=== PATIENT | female | born 1995 | race Caucasian/White ===

== ENCOUNTER 2020-01-08 07:12 | Day surgery (SDC) | payer OTHER ==
[2020-01-03 15:24] VITALS: BMI 30.9
[~2020-01-08 07:12] MED LIST: ACETAMINOPHEN TAB 500 MG TAB PO ONE; CLINDAMYCIN 900 MG in DEXTROSE 5% IN WATER 50 ML IVPB ONE; GENTAMICIN 320 MG in SODIUM CHLORIDE 0.9% 100 ML IVPB ONE; HEPARIN SODIUM,PORCINE 5,000 UNIT/ML 1 ML VIAL SQ ONE
[2020-01-08 07:42] VITALS: RESP 16
[2020-01-08] MEDS ORDERED: LACTATED RINGERS 1,000 ML IV ONE (07:58)
[2020-01-08] MEDS ORDERED: LIDOCAINE 1% (10MG/ML) FOR IV START INTRADERMA ONE (07:59)
[2020-01-08] MEDS ORDERED: ONDANSETRON 4 MG/2 ML VIAL ONE (08:01)
[2020-01-08] MEDS ORDERED: DEXAMETHASONE SOD PHOSPHATE 4 MG/ML 1 ML VIAL IV ONE (08:18)
[2020-01-08] MEDS ORDERED: MIDAZOLAM 2 MG/2 ML VIAL IV ONE (08:18)
[2020-01-08] MEDS ORDERED: SCOPOLAMINE 1.5MG/72HR PATCH TRANSDERM ONE (08:20)
--- NOTE | 2020-01-08 08:39 | P.GSHP ---
History of Present Illness H&P Date: 01/08/20 Chief Complaint: Right upper quadrant pain This a 21-year-old female who's had complaints of right upper quadrant pain. She presents today for laparoscopic cholestatic. She's had complaints of pain when eating greasy and fried foods. Past Medical History Additional Past Medical History / Comment(s): cholelithiasis History of Any Multi-Drug Resistant Organisms: None Reported Past Surgical History: Orthopedic Surgery Additional Past Surgical History / Comment(s): rt knee scope Past Anesthesia/Blood Transfusion Reactions: No Reported Reaction Smoking Status: Never smoker - Past Family History Mother Family Medical History: No Reported History Medications and Allergies Home Medications Medication Instructions Recorded Confirmed Type Ethinyl Estradiol/Drospirenone 1 tab PO DAILY 01/03/20 01/08/20 History [Melissa 28 Tablet] Allergies Allergy/AdvReac Type Severity Reaction Status Date / Time amoxicillin Allergy Rash/Hives Verified 01/08/20 07:30 cefprozil [From Cefzil] Allergy tongue Verified 01/08/20 07:30 Swelling Penicillins Allergy Rash/Hives Verified 01/08/20 07:30 Surgical - Exam Vital Signs Temp Pulse Resp BP Pulse Ox 98.4 F 97 16 133/86 99 01/08/20 07:40 01/08/20 07:40 01/08/20 07:40 01/08/20 07:40 01/08/20 07:40 - General well developed, well nourished, no distress - Eyes PERRL - ENT normal pinna - Neck no masses - Respiratory normal expansion - Cardiovascular Rhythm: regular - Abdomen Abdomen: soft, non tender Assessment and Plan Assessment: There are dysfunction. We'll perform laparoscopic cholecystectomy.
[2020-01-08] MEDS ORDERED: KETOROLAC 15 MG/ML 1 ML VIAL ONE (08:41)
[2020-01-08] MEDS ORDERED: GLYCOPYRROLATE 0.2 MG/ML 2 ML VIAL ONE (08:41)
[2020-01-08] MEDS ORDERED: MIDAZOLAM 2 MG/2 ML VIAL ONE (08:41)
[2020-01-08] MEDS ORDERED: ROCURONIUM 10 MG/ML (10 ML VIAL) IV ONE (08:41)
[2020-01-08] MEDS ORDERED: SUCCINYLCHOLINE CHLORIDE 100 MG/5 ML SYR IV ONE (08:41)
[2020-01-08] MEDS ORDERED: fentaNYL (PF) 50 MCG/ML 2 ML AMP ONE (08:41)
[2020-01-08] MEDS ORDERED: NEOSTIGMINE 1 MG/ML 10 ML VIAL ONE (08:41)
[2020-01-08] MEDS ORDERED: LIDOCAINE 1% INJ 10MG/ML (20 ML MDV) ONE (08:41)
[2020-01-08] MEDS ORDERED: PROPOFOL 10 MG/ML 20 ML VIAL IV ONE (08:41)
[2020-01-08] MEDS ORDERED: BUPIVACAINE (PF) 0.25% 30 ML VIAL SQ ONE ×2 (09:07→09:20)
--- NOTE | 2020-01-08 09:28 | P.OP ---
Date of Procedure: 01/08/20 Preoperative Diagnosis: Cholecystitis Postoperative Diagnosis: Cholecystitis Procedure(s) Performed: Laparoscopic cholecystectomy Anesthesia: LOREN Surgeon: Scott Lynn Estimated Blood Loss (ml): 5 Pathology: other (Gallbladder) Condition: stable Disposition: PACU Description of Procedure: The patient was placed on the operating table. The patient received a general endotracheal tube anesthesia. The patients abdomen was prepped and draped in the usual sterile fashion. Through an infraumbilical stab incision, the fascia of the anterior abdominal wall was grasped with a pair of Kochers and then the Veress needle was placed in the peritoneal cavity. Position of the Veress needle was confirmed with positive drop test. The abdomen was then insufflated. After adequate insufflation, the 10 mm trocar was placed in the peritoneal cavity. Following this the laparoscope was placed in the peritoneal cavity. The patient was placed in the head-up, right side up position and then a 5 mm trocar was placed in the right lateral and right subcostal position under direct visualization. A 8 mm trocar was placed in the epigastric position. The gallbladder was grasped in the fundus and infundibulum. Traction on the gallbladder was placed in the lateral and the cephalad positions. The triangle of Calot was visualized.. The cystic duct was bluntly dissected until the union of the cystic duct and common bile duct was seen. A critical view of safety was achieved. The cystic duct was then divided and sealed with the Harmonic scissors. A PDS Endoloop was then placed throughout the cystic duct stump. The cystic artery divided and sealed with the Harmonic scissors. The gallbladder was then removed from the liver bed using Harmonic scissors. The gallbladder was then extracted through the epigastric port site. Operative field was checked for any bleeding spots and Harmonic scissors was used to coagulate the liver bed. The abdomen was irrigated. The trocars were removed. The skin was closed using interrupted 3-0 Vicryl suture. Dermabond dressing were applied. The patient tolerated the procedure well.
[2020-01-08 09:41] VITALS: TEMP 97.4
[2020-01-08] MEDS: HYDROmorphone 0.5 MG/0.5 ML SYRINGE IVP ONE ×2 (09:47→09:58)
[2020-01-08] MEDS ORDERED: diphenhydrAMINE 50 MG/ML 1 ML VIAL IVP ONE (10:05)
[2020-01-08 12:12] VITALS: BP 117/75; PULSE 76
== END 2020-01-08 12:28 | disposition home or self-care (01) ==
LOC: OR 07:12
PROVIDERS: ATTEND Surgery
DX: K81.1 Chronic cholecystitis (principal); K08.89 Other specified disorders of teeth and supporting structures; Z98.890 Other specified postprocedural states; Z79.3 Long term (current) use of hormonal contraceptives; Z88.0 Allergy status to penicillin; Z88.1 Allergy status to other antibiotic agents
CPT/HCPCS: 81025; 88304

== ENCOUNTER 2020-09-30 20:08 | Emergency (ER) | payer OTHER ==
[2020-09-30 20:25] VITALS: RESP 20; TEMP 98.9
[2020-09-30 21:07] VITALS: BP 132/94; PULSE 72
--- NOTE | 2020-09-30 21:08 | ED ---
Skin/Abscess/FB HPI - General Chief complaint: Skin/Abscess/Foreign Body Stated complaint: rash, chest discomfort Source: patient, family, RN notes reviewed, old records reviewed Mode of arrival: ambulatory Limitations: no limitations - History of Present Illness Initial comments: 25-year-old white female, alert and oriented 4, presents to the emergency room with her mother complaining of a rash that she's had on and off since June. Patient states that she has seen her primary care doctor and they told her to have some specific Ig labs drawn today however the lab was closed when she got there. Patient states that she went to [facility] today for the rash because it was on her face and eyelids and was discharged at 17:00. she stated that they gave her Benadryl and steroids to take which helped. She states that the rash does resolve with the Benadryl but then comes back. She currently has the rash to her chest and arms and abdomen. Last dose of Benadryl was 1700. She denies any shortness of breath, throat swelling or difficulty breathing. She does state it is itchy. She is tearful and frustrated that she has not had a diagnosis yet. Came to this ER to see if we could diagnose the problem. MD complaint: rash -: month(s) (Started in June) Location: generalized (Mother) Severity scale (1-10): 3 (itchy) Consistency: constant Improves with: medication (Benadryl and steroids) Treatments Prior to Arrival: Benadryl, corticosteroid - Related Data Home Medications Medication Instructions Recorded Confirmed Ethinyl Estradiol/Drospirenone 1 tab PO DAILY 01/03/20 01/08/20 [Melissa 28 Tablet] Previous Rx's Medication Instructions Recorded Acetaminophen Tab [Tylenol] 650 mg PO Q6H #30 tab 01/08/20 Docusate [Colace] 100 mg PO BID #20 capsule 01/08/20 Ibuprofen [Motrin] 600 mg PO Q6HR PRN #40 tab 01/08/20 oxyCODONE HCL [OxyIR] 5 mg PO Q4H PRN 3 Days #18 tab 01/08/20 Allergies Allergy/AdvReac Type Severity Reaction Status Date / Time amoxicillin Allergy Rash/Hives Verified 09/30/20 20:25 cefprozil [From Cefzil] Allergy tongue Verified 09/30/20 20:25 Swelling Penicillins Allergy Rash/Hives Verified 09/30/20 20:25 Review of Systems ROS Statement: Those systems with pertinent positive or pertinent negative responses have been documented in the HPI. ROS Other: All systems not noted in ROS Statement are negative. Past Medical History Additional Past Medical History / Comment(s): cholelithiasis History of Any Multi-Drug Resistant Organisms: None Reported Past Surgical History: Orthopedic Surgery Additional Past Surgical History / Comment(s): rt knee scope Past Anesthesia/Blood Transfusion Reactions: No Reported Reaction Past Psychological History: Anxiety Smoking Status: Never smoker Past Alcohol Use History: Occasional Past Drug Use History: None Reported - Past Family History Mother Family Medical History: No Reported History General Exam Limitations: no limitations General appearance: alert, in no apparent distress Head exam: Present: atraumatic, normocephalic, normal inspection Eye exam: Present: normal appearance, PERRL, EOMI. Absent: scleral icterus, conjunctival injection, periorbital swelling Pupils: Present: normal accommodation ENT exam: Present: normal exam, normal oropharynx, mucous membranes moist, TM's normal bilaterally Neck exam: Present: normal inspection, full ROM. Absent: tenderness, meningismus, lymphadenopathy, thyromegaly Respiratory exam: Present: normal lung sounds bilaterally. Absent: respiratory distress, wheezes, rales, rhonchi, stridor, chest wall tenderness, accessory muscle use, decreased breath sounds Cardiovascular Exam: Present: regular rate, normal rhythm, normal heart sounds. Absent: systolic murmur, diastolic murmur, rubs, gallop, clicks GI/Abdominal exam: Present: soft, normal bowel sounds. Absent: distended, tenderness, guarding, rebound, rigid Extremities exam: Present: full ROM, normal capillary refill. Absent: tenderness, pedal edema, joint swelling Back exam: Present: full ROM, rash noted (Rash resembling Erythema multiforme). Absent: tenderness, CVA tenderness (R), CVA tenderness (L), muscle spasm, paraspinal tenderness, vertebral tenderness Neurological exam: Present: alert, oriented X3, CN II-XII intact Psychiatric exam: Present: normal affect, normal mood Skin exam: Present: warm, dry, intact, normal color. Absent: rash, cyanosis, diaphoretic, urticaria, vesicles, petechiae, pallor, mottled, abrasion Course Vital Signs 09/30/20 09/30/20 20:22 21:07 Temperature 98.9 F Pulse Rate 90 72 Respiratory 20 20 Rate Blood Pressure 139/87 132/94 O2 Sat by Pulse 100 97 Oximetry Medical Decision Making - Medical Decision Making Patient has been seen by her primary care doctor and given a prescription to have specific labs drawn. She was also seen at [facility] emergency room this afternoon and evaluated, given a prescription for steroids and Benadryl at that time. Explained to patient the importance of following up with her primary care doctor and also given a dermatology referral. Directed to return the emergency room with any facial swelling, difficulty breathing or shortness of breath. Patient's mother bedside states that they do have an appointment this week with the primary care doctor. Case discussed with Dr. Gilbert Disposition Clinical Impression: Rash and nonspecific skin eruption Disposition: HOME SELF-CARE Condition: Fair Instructions (If sedation given, give patient instructions): Acute Rash (ED) Additional Instructions: Continue taking your medications as previously prescribed, Benadryl and steroids. Have the labs drawn that your doctor requested tomorrow morning. Return to the emergency room with any shortness of breath, nausea vomiting or fevers. Is patient prescribed a controlled substance at d/c from ED?: No Referrals: Mickey Osuna MD [Primary Care Provider] - 1-2 days Ashanti Beauchamp MD [STAFF PHYSICIAN] - 1-2 days Time of Disposition: 21:08
== END 2020-09-30 21:26 | disposition home or self-care (01) ==
LOC: EC 20:08
DX: R21 Rash and other nonspecific skin eruption (principal); R07.89 Other chest pain; Z88.0 Allergy status to penicillin; Z88.1 Allergy status to other antibiotic agents
CPT/HCPCS: 99284